=== PATIENT | male | born 1995 | race Caucasian/White ===

== ENCOUNTER 2024-05-12 14:35 | Inpatient (IN) | payer OTHER, SELFPAY ==
[2024-05-12] VITALS (9 sets, daily range): BP systolic 103–133; BP diastolic 57–84; BMI 22.9
--- NOTE | 2024-05-12 11:32 | ED.GENMED ---
History of Present Illness
General
Chief Complaint: Alcohol Problem
Source: patient
Time Seen by Provider: 05/12/24 11:26
History of Present Illness
History of Present Illness:
28yoM with a history of alcohol abuse presenting via EMS for evaluation of alcohol withdrawal. Patient has been drinking alcohol heavily consistently for the past 9 years. He states he drinks at least 6 shots of liquor and 5-6 beers per day and
sometimes drinks up to 12 shots a day. He stopped drinking and last drink was around 7:30pm last night. He states he feels like . He reports nausea, dry heaving, body pains, tremors. He also noticed a small amount of dark red blood in his
spittle after dry heaving. Patient was given 4 mg IV Zofran prehospital. He has never gone through alcohol withdrawal in the past. He smokes marijuana. Otherwise denies illicit drug use.
Past History
Past History
ED Past Medical History: None
ED Past Surgical History: None
Patient has exhibited threatening behavior?: No
Social History
Tobacco: Non-smoker
Alcohol: None
Drug: Marijuana
Personal: Single
Living: with family
Family History
Family History: Other (non contributory)
Phy Exam
Physical Exam
Physical Exam:
Mildly diaphoretic, dry heaving, appears uncomfortable
General Physical Exam
General Presentation: mild distress
General age: appears stated age
General Skin: warm
General Habitus: normal
General Mental: alert
ENT Exam
ENT Exam: normocephalic
Cardiovascular Exam
Cardiovascular Exam: regular rate/rhythm and no murmur
Pulmonary Exam
Pulmonary Exam: lungs clear, no respiratory distress, no rales, no crackles, no rhonchi and no wheezing
Neurological Exam
Neurological Exam: alert and no motor deficits
[place] Coma Scale
Eye Opening: Spontaneous
Verbal Response: Oriented
Motor Response: Obeys Commands
GCS Total Score: 15
Skin Exam
Skin Exam: normal color and warm/dry
Psychiatric Exam
Psychiatric Exam: normal mood/affect
Scores
Withdrawal Assessment of Alcohol
Withdrawal Assessment Completed?: Not applicable
Course
Orders/Labs/Results
Orders:
Orders
05/12/24 11:21
ECG [Electrocardiogram (*1)] Urgent
Reason for Study: Other
Other Reason for Exam: alcohol withdrawl
EKG- Treatment ONCE
05/12/24 11:25
Ondansetron Injectable [Zofran] 4 mg .ROUTE .STK-MED ONE
05/12/24 11:30
CMP [Comprehensive Metabolic Panel] Urgent
Magnesium Urgent
05/12/24 11:31
Cardiac Monitoring- Treatment ONCE
Complete Blood Count/With Diff Urgent
0.9% Sodium Chloride 1000 ml [Nss] 1,000 ml IV BOLUS
Lorazepam [Ativan] 2 mg IV NOW STA
05/12/24 11:34
Famotidine [Pepcid] 20 mg IV NOW STA
Pantoprazole [Protonix IV] 40 mg IV NOW STA
05/12/24 13:14
Magnesium Sulfate 2 Gram/50 ml [Magnesium Sulfate] 2 gram in 50 ml IV NOW
05/12/24 13:52
Admit/Transfer Patient As Directed
Co-Sign Provider:
Level of Care: Inpatient admission
Assign to:: IMU- Intermediate Care
Physician / Group: [email or web address]
Diagnosis: Acute ETOH WDS - Hi risk for fulminant DTs
Reason for Hospitalization: Acute ETOH WDS - Hi risk for fulminant DTs
Expected length of stay greater than two midnights?: Yes
ELOS- Estimated Length of Stay in days: 3
I certify the patient meets the requirements for IP care: Yes
05/12/24 14:04
Code Status As Directed
Resuscitation Status: Full Code
Abnormal Lab Results
05/12/24 05/12/24
11:30 11:31
WBC 18.2 H 10^3/uL
(4.8-10.8)
RBC 4.58 L 10^6/uL
(4.70-6.10)
MCH 31.9 H pg
(27.0-31.0)
Abs Immat Gran (auto) 0.1 H 10^3/uL
(0-0.05)
Absolute Neuts (auto) 16.1 H 10^3/uL
(1.4-6.5)
Absolute Lymphs (auto) 1.1 L 10^3/uL
(1.2-3.4)
Absolute Monos (auto) 0.9 H 10^3/uL
(0.1-0.6)
Neutrophils % 88.2 H %
(42.2-75.2)
Lymphocytes % 6.2 L %
(20.5-51.1)
Carbon Dioxide 19 L mmol/L
(22-30)
Glucose 101 H mg/dl
(70-99)
Magnesium 1.4 L mg/dl
(1.6-2.3)
AST 72 H U/L
(17-59)
Albumin 5.4 H g/dl
(3.5-5.0)
05/12/24 11:31
05/12/24 11:30
Vital Signs
Initial and Last Documented VS:
Initial Vital Signs
Temp Pulse Resp BP Pulse Ox
97.8 F 70 18 133/65 99
05/12/24 11:22 05/12/24 11:22 05/12/24 11:22 05/12/24 11:22 05/12/24 11:22
Last Documented Vital Signs
Temp Pulse Resp BP Pulse Ox
97.8 F 114 23 114/72 97
05/12/24 11:22 05/12/24 14:00 05/12/24 14:00 05/12/24 14:00 05/12/24 14:00
MDM/Problems Addressed
Differential Diagnosis Includes:
28yoM here for alcohol withdrawal. Hx of heavy alcohol use, last drink 7:30pm. Interested in quitting. C/o nausea, dry heaving, fatigue, feeling like . He is mildly diaphoretic and uncomfortable on exam. VSS. Differential diagnosis includes but
is not limited to: alcohol withdrawal, dehydration, electrolyte abnormality
Initial ED plan: Check CBC, CMP, magnesium, and EKG. 2mg IV Ativan and fluid bolus ordered. Anticipate that patient will need to be admitted given high risk of DTs.
*EKG
Interpreted by ED Provider?: Yes
EKG Intrepretation Date: 05/12/24
Heart Rate: 65
Rate: normal
Rhythm: sinus and PAC's
Ulysses: normal axis
Interval: normal interval
QRS Pattern: normal QRS
Ischemia: no ischemia
*Critical Care Note
Total Time (30-74mins, 75-104mins- exclusive of procedures): Not Applicable
ED Attending Note
-
Portions of this chart may have been created with voice recognition software.� Occasional wrong word or��sound alike� substitutions may have occurred due to the inherent limitations of voice recognition software.
Discharge Plan
Departure
Patient Disposition: Admit
Date of Disposition: 05/12/24
Time of Disposition: 13:22
Presentation/result/management discussed w/ accepting MD/DO: Hospitalist
Discharge Problem:
Alcohol withdrawal
Interventions
Interventions:
*General Assessment Last Done: 05/12/24 11:22
ED- Fall Risk Assessment Last Done: 05/12/24 12:07
[2024-05-12] MEDS: NSS 1000 IV ×2 (11:41→19:59)
[2024-05-12] MEDS: PROTONIX IV 40 MG IV (11:41)
[2024-05-12] MEDS: ATIVAN 2 MG IV (11:41)
[2024-05-12] MEDS: PEPCID 20 MG IV (11:41)
[2024-05-12 11:45] LABS: % Basophils 0.4 % (0-2); % Immature Granulocytes 0.4 % (0-0.5); % Lymphocytes 6.2 % (20.5-51.1); % Monocytes 4.8 % (1.7-9.3); % Neutrophils 88.2 % (42.2-75.2); Absolute Basophils 0.1 10^3/uL (0-0.2); Absolute Immature Granulocytes 0.1 10^3/uL (0-0.05); Absolute Lymphocytes 1.1 10^3/uL (1.2-3.4); Absolute Monocytes 0.9 10^3/uL (0.1-0.6); Absolute Neutrophils 16.1 10^3/uL (1.4-6.5); Hematocrit 40.7 % (39.0-52.0); Hemoglobin 14.6 g/dL (13.0-18.0); Mean Corp Hgb Conc. 35.9 g/dL (33.0-37.0); Mean Corpuscular Hgb 31.9 pg (27.0-31.0); Mean Corpuscular Volume 88.9 fL (80.0-94.0); Mean Platelet Volume 9.1 fL (7.4-10.4); Nucleated Red Blood Cells % 0 % (-); Platelet Count 290 10^3/uL (130-400); Red Blood Cell Count 4.58 10^6/uL (4.70-6.10); Red Cell Dist. Width 13.1 % (11.5-14.5); White Blood Cell Count 18.2 10^3/uL (4.8-10.8)
[2024-05-12 12:07] LABS: ALT (SGPT) 45 U/L (0-50); AST (SGOT) 72 U/L (17-59); Albumin 5.4 g/dl (3.5-5.0); Alkaline Phosphatase 86 U/L (38-126); Blood Urea Nitrogen 17 mg/dl (9-20); Calcium 10.2 mg/dl (8.4-10.2); Carbon Dioxide 19 mmol/L (22-30); Chloride 101 mmol/L (98-107); Glucose 101 mg/dl (70-99); Magnesium 1.4 mg/dl (1.6-2.3); Potassium 3.7 mmol/L (3.5-5.1); Sodium 139 mmol/L (135-145); Total Bilirubin 0.8 mg/dl (0.2-1.3); eGFR > 60.00
[2024-05-12] MEDS: MAGNESIUM SULFATE 50 IV (13:24)
--- NOTE | 2024-05-12 13:46 | HPS.HSE ---
Family Physician
-
Family Physician: Lia Douglass
Chief Complaint
-
concern with ETOH WDS
History of Present Illness
HPI
28M HX alcohol used disorder seen at ER for evaluation of alcohol withdrawal.
- has been drinking alcohol heavily consistently for the past 9 years.
- at least 6 shots of liquor and 5-6 beers per day and sometimes drinks up to 12 shots a day.
- stopped drinking and last drink was around 7:30pm last night less than 24 hrs ago on presentation
- Anxious , states he feels like .
- reports nausea, dry heaving, body pains, tremors.
- Dark red blood in his spittle after dry heaving.
Patient was given 4 mg IV Zofran prehospital.
Reports ever gone through alcohol withdrawal in the past.
smokes marijuana.
denies illicit drug use.
Medical History
Past Medical History
Past Medical History: Reports Other (ETOH use disorder )
Past Surgical History: Reports None
Social History
Tobacco: Non-smoker
Alcohol: Chronic Alcoholic (- has been drinking alcohol heavily consistently for the past 9 years. - at least 6 shots of liquor and 5-6 beers per day and sometimes drinks up to 12 shots a day. )
Drug: Marijuana
Family History
Family History: Not pertinent
Allergies / Home Medications
Allergies reflects when Allergies were last updated in [facility].
Home Medications with original date entered in [facility]
Allergy/Medication List:
Allergies
Allergy/AdvReac Type Severity Reaction Status Date / Time
No Known Allergies Allergy Verified 05/12/24 11:22
Home Medications
No Meds [No Current Medications] 05/12/24
Review of Systems
-
Constitutional: Reports See HPI
EENT: Reports No Symptoms
Respiratory: Reports No Symptoms
Cardiac: Reports No Symptoms
Abdomen/GI: Reports No Symptoms
: Reports No Symptoms
Musculoskeletal: Reports No Symptoms
Skin: Reports No Symptoms
Neurological: Reports No Symptoms
Endocrine: Reports No Symptoms
Hematologic/Lymphatic: Reports No Symptoms
Psych: Reports Anxiety
Physical Exam
Vital Signs
Vital Signs
Temp Pulse Resp BP Pulse Ox
97.8 F 97 24 114/71 99
05/12/24 11:22 05/12/24 13:00 05/12/24 13:00 05/12/24 13:00 05/12/24 13:00
Physical Exam
General: Well Developed, Well Nourished and No Apparent Distress
HEENT: NormoCephalic, Moist mucous membranes and Atraumatic
Respiratory: Clear
Cardiac: S1/S2 and Regular Rhythm; No Murmur or Rub
GI: Soft, Non Tender, Non Distended and Normal Bowel Sounds; No Organomegaly
Rectal: Deferred by Provider
Musculoskeletal: No Clubbing, No Cyanosis and No Edema
Skin: No Rash
Neuro: Nonfocal/grossly intact
Laboratory Results
-
05/12/24 11:31
05/12/24 11:30
Laboratory Results
Total Bilirubin 0.8 mg/dl (0.2-1.3) 05/12/24 11:30
AST 72 U/L (17-59) H 05/12/24 11:30
ALT 45 U/L (0-50) 05/12/24 11:30
Alkaline Phosphatase 86 U/L (38-126) 05/12/24 11:30
Data Reviewed
-
Lab Data: Labs Reviewed by me
Impression/Plan
-
Reviewed VS:
Vital Signs
Temp Pulse Resp BP Pulse Ox
97.8 F 97 24 114/71 99
05/12/24 11:22 05/12/24 13:00 05/12/24 13:00 05/12/24 13:00 05/12/24 13:00
Laboratory Tests
05/12/24 05/12/24
11:30 11:31
WBC 18.2 H
Hgb 14.6
MCV 88.9
Plt Count 290
Carbon Dioxide 19 L
eGFR > 60.00
Magnesium 1.4 L
Total Bilirubin 0.8
AST 72 H
ALT 45
Alkaline Phosphatase 86
Albumin 5.4 H
EKG report
SINUS RHYTHM WITH PREMATURE ATRIAL COMPLEXES
OTHERWISE NORMAL ECG
WHEN COMPARED WITH ECG OF 31-MAY-2014 21:31,
PREMATURE ATRIAL COMPLEXES ARE NOW PRESENT
VENT. RATE HAS DECREASED BY 33 BPM
NONSPECIFIC T WAVE ABNORMALITY NO LONGER EVIDENT IN INFERIOR LEADS
NONSPECIFIC T WAVE ABNORMALITY NO LONGER EVIDENT IN ANTEROLATERAL LEADS
Confirmed by BULMARO COATES, CHANELL ([id number]) on 05/12/2024 1:20:34 PM
NO PRIOR hospitalist admission:
ASSESSMENT & PLAN
Acute ETOH WDS - Hi risk for fulminant DTs
- last drink was around 7:30pm last night lesss than 24 hrs ago on presentation
- calm down with IV Ativan 2 mg at ER
- will start PHB protocol
- Psych consulted
Hypomagnesemia of Alcoholism
- S/P IV Mg
- f/u Mg
DVT Px: SCD
Code: full
IMU
--- NOTE | 2024-05-12 16:35 | CON.MD ---
Consultation - Medical
-
28 yr old M, presenting to ED after seeing blood in vomit today at work. Psychiatry consulted as pt with significant EtOH abuse & at risk of w/d.
Pt reports drinking 'at least' 6 beers & 6 shots every day since his early 20's, with no significant periods of sobriety (at most few weeks 'here and there'). Pt notes that he often will have more EtOH than his minimum, up to 12 shots and 6 beers in
1 day. Denies hx of w/d seizures, denies hx of AM tremulousness though does feel nauseous/throws up and has 'few shots' to feel better & start the day.
Lives with his sister and her bf, has good relationship with them - it seems they drink EtOH as well and last week had a 'sit down' and all agreed they need to drink less EtOH. Pt not interested in any EtOH tx at this time however & does not want to
get sober - wants to just decrease his use to '2 or 3 beers' a day. Attempted to provide psychoed about risks of ongoing use and importance of abstinence, especially given what brought him to ED, however pt not amenable to this at this time.
Did receive IV Ativan 2mg in ED for w/d.
Mg being repleted due to hypomagnesemia of alcoholism.
AST 72, LFTs otherwise wnl
elevated WBC, no anemia
EtOH abuse, severe
MSE: calm,cooperative,pleasant,speech is normal rate & rhythm,,mood is OK, affect is appropriate & congruent to mood,, thought process is logical & goal directed, thought content: denies SI/HI/AVH/delusions. AAOx3. Memory not formally tested.
Insight moderate. Judgement moderate
Plan:
Continue MSAS protocol, likely needs phenobarbital given extent of his use though this seems to already be in his plan on admission
No other changes indicated at this time
[2024-05-12 19:06] LABS: INR 1.06; PT 14.1 Sec (11.4-14.6)
[2024-05-12 19:07] LABS: APTT 25.9 Sec (23.4-35.0)
[2024-05-12 19:17] LABS: GGTP 232 U/L (15-73); Magnesium 2.1 mg/dl (1.6-2.3); Phosphorus 3.8 mg/dl (2.5-4.5)
[2024-05-12 19:19] LABS: Alcohol None Detected
[2024-05-12 19:23] LABS: B-Hydroxybutyrate 3.28 mmol/L (0.02-0.27)
[2024-05-12] MEDS: NICODERM TRANSDERMAL 14 MG TRANSDERM (19:58)
[2024-05-12] MEDS: THIAMINE INJECTION 200 MG IV ×2 (19:59→23:44)
[2024-05-12] MEDS: PHENOBARBITAL 104 MG IV (20:55)
[2024-05-13] VITALS (10 sets, daily range): BP systolic 105–135; BP diastolic 62–90; BMI 23.2
[2024-05-13] MEDS: TYLENOL 650 MG PO (04:03)
[2024-05-13 04:09] LABS: Urine Albumin Trace (Neg - Trace); Urine Bilirubin 1+ (Negative); Urine Character Clear (Clear); Urine Color Amber; Urine Glucose Negative (Negative); Urine Ketone 3+ (Negative); Urine Leukocyte Negative (Negative); Urine Nitrite Negative (Negative); Urine Occult Blood Negative (Negative); Urine Urobilinogen 1+ (Neg - 1+)
[2024-05-13 04:50] LABS: Amphetamines Negative (Negative); Barbiturates Positive (Negative); Benzodiazepines Positive (Negative)
[2024-05-13 04:50] LABS: ALT (SGPT) 33 U/L (0-50); AST (SGOT) 52 U/L (17-59); Alkaline Phosphatase 48 U/L (38-126); Blood Urea Nitrogen 14 mg/dl (9-20); Calcium 8.7 mg/dl (8.4-10.2); Carbon Dioxide 22 mmol/L (22-30); Chloride 100 mmol/L (98-107); Estimated Creatinine Clearance > 125 ml/min; Glucose 83 mg/dl (70-99); Potassium 3.9 mmol/L (3.5-5.1); Sodium 130 mmol/L (135-145); Total Bilirubin 1.3 mg/dl (0.2-1.3); Total Protein 6.3 g/dl (6.3-8.2); eGFR > 60.00
[2024-05-13 04:51] LABS: Buprenorphine Negative (Negative); Cocaine Negative (Negative); Marijuana Positive (Negative); Methadone Negative (Negative); Methamphetamines Negative (Negative); Opiates Negative (Negative); Phencyclidine Negative (Negative); Tricyclic Antidepressants Negative (Negative)
[2024-05-13 05:05] LABS: Fentanyl, Urine Negative (Negative)
[2024-05-13] MEDS: NSS 1000 IV (07:36)
[2024-05-13] MEDS: NICODERM TRANSDERMAL 14 MG TRANSDERM (07:37)
[2024-05-13] MEDS: THIAMINE INJECTION 200 MG IV ×3 (07:38→23:02)
[2024-05-13] MEDS: PHENOBARBITAL 97.5 MG IV ×3 (07:38→21:04)
[2024-05-13] MEDS: FOLVITE 1 MG PO (07:38)
--- NOTE | 2024-05-13 13:42 | W.PN.HOSP.TC ---
Addendum entered and electronically signed by Duong Jordan MD 05/13/24 14:08:
Heme test was found to be negative.
Original Note:
Today's Communication/Plan
-
replete lyte
phenobarb protocol
MSAS protocol
IV ppi
Assessment / Plan
Assessment / Plan
#Daily alcohol abuse
#Acute alcohol withdrawal
#Acute alcohol withdrawal syndrome with concern for developing possibly delirium tremens
Starting to feel little bit better
Continue with IV fluids and can be stopped later today
Encourage p.o. intake
Continue with alcohol withdrawal protocol. Continue with Ativan per the protocol
Continue with phenobarbital taper regimen
Appreciate psych assistance.
#Hypomagnesemia
Replete and monitor
#Nausea and vomiting with possible Kelsey-Hernadnez tear versus esophagitis versus gastritis
IV PPI
Check FOBT
Hemoglobin stable. Monitor for any luminal bleeding. Check CBC. Trend h/h
#Mild hyponatremia secondary to hypovolemia
Trend BMP
Monitor p.o. intake
Marijuana usage daily
Tobacco abuse daily
Nicotine patch
DVT prophylaxis with Lovenox
Anticipated Discharge: > 48 hours
Subjective/Interval History
-
Date of Service: May 13, 2024
states starting to feel little bit better
states vomiting specks of blood yesterday
having mildly loose bm
Objective Data
-
Labs:
Laboratory Results
05/13/24
03:59
Sodium 130 L D
Potassium 3.9
Chloride 100
Carbon Dioxide 22
BUN 14
Creatinine 0.7
Glucose 83
Calcium 8.7 D
Total Bilirubin 1.3
AST 52
ALT 33
Alkaline Phosphatase 48
Vital Signs:
Vital Signs
Temp Pulse Resp BP Pulse Ox
98.1 F 62 22 132/83 97
05/13/24 11:10 05/13/24 08:00 05/13/24 08:00 05/13/24 08:00 05/13/24 04:00
I&O
05/12/24 05/13/24 05/14/24
06:59 06:59 06:59
Output Total 175 / 175
Balance -175 / -175
Physical Exam
-
General: Well Developed and No Apparent Distress
HEENT: Normocephalic, Atraumatic and Moist Mucous Membranes
Respiratory: Clear to Auscultation
Cardiac: Regular Rhythm and S1/S2; Negative Murmur, Rub or Gallop
GI: Soft, Nontender, Nondistended and Normal Bowel Sounds; Negative Organomegaly
Rectal: Deferred by Provider
Musculoskeletal: No Clubbing, No Cyanosis and No Edema
Skin: Negative Rash
Neuro: Awake, Alert, Oriented, AO x 3, No Motor Deficits, Tremors and Nonfocal/Grossly Intact
Psych: Calm
Data Reviewed
-
Total Time Spent with Patient (in minutes): 55
[2024-05-13 14:19] LABS: Magnesium 1.9 mg/dl (1.6-2.3); Phosphorus 2.9 mg/dl (2.5-4.5)
[2024-05-13 14:31] LABS: % Basophils 0.5 % (0-2); % Eosinophils 0.6 % (0-6); % Immature Granulocytes 0.4 % (0-0.5); % Lymphocytes 18.6 % (20.5-51.1); % Monocytes 7.7 % (1.7-9.3); % Neutrophils 72.2 % (42.2-75.2); Absolute Basophils 0.1 10^3/uL (0-0.2); Absolute Eosinophils 0.1 10^3/uL (0-0.7); Absolute Monocytes 0.8 10^3/uL (0.1-0.6); Absolute Neutrophils 7.8 10^3/uL (1.4-6.5); Hematocrit 35.7 % (39.0-52.0); Hemoglobin 12.6 g/dL (13.0-18.0); Mean Corp Hgb Conc. 35.3 g/dL (33.0-37.0); Mean Corpuscular Hgb 32.1 pg (27.0-31.0); Mean Corpuscular Volume 91.1 fL (80.0-94.0); Mean Platelet Volume 9.2 fL (7.4-10.4); Nucleated Red Blood Cells % 0 % (-); Platelet Count 203 10^3/uL (130-400); Red Blood Cell Count 3.92 10^6/uL (4.70-6.10); Red Cell Dist. Width 12.9 % (11.5-14.5); White Blood Cell Count 10.8 10^3/uL (4.8-10.8)
--- NOTE | 2024-05-13 15:08 | CM ---
Patient with Hx Etoh abuse. Tox screen + barbs, benzos, THC. MSAS per nursing. Psych Consult noted.
Spoke with patient who resides with his sister Jessi, her boyfriend and his cat, in a 2nd floor apartment with 1 flight inside stairs.
The patient has been independent in ADLs and ambulation.
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
The patient has no DME or prior VN.
PCP - Lia Douglass
Pharmacy - [facility]
The patient confirms that he has no insurance.
CM Consult: Substance Abuse
The patient says he attended [facility] outpatient program 9 yrs ago that was court mandated after a DUI, however he did not take the program seriously and drank alcohol during the program.
He is willing to speak with [facility] however doubts he will do an inpatient program as there is no one else who can manage his cat.
Referral to [facility]; the patient will be seen tomorrow.
Plan follow up with [facility].
--- NOTE | 2024-05-13 15:29 | PTCARENOTE ---
Pt's MSAS 0 today. No tremors, AAO x3. vital signs stable.
[2024-05-13] MEDS: PROTONIX IV 40 MG IV ×2 (15:58→21:03)
[2024-05-13] MEDS: NSS (PRESERVATIVE FREE) 10 ML IV ×2 (15:59→21:02)
--- NOTE | 2024-05-13 16:55 | PTCARENOTE ---
Notified Dr. Campos, cross cover and Dr. Katz, Cards pt's BP 75/52. Order to hold 2mg bumex.
[2024-05-13] MEDS: LOVENOX 40 MG SC (18:40)
--- NOTE | 2024-05-13 23:30 | PTCARENOTE ---
Received pt from day shift RN. Pt aaox3 and able to make needs known. AIDE meds given and nursing assessment completed. Pt resting in bed with call castillo in reach.
[2024-05-14] VITALS: BP 105/71
[2024-05-14 04:27] VITALS: BP 133/92
--- NOTE | 2024-05-14 04:40 | PTCARENOTE ---
Received pt from day shift RN. Pt aaox3 and able to make needs known. MSAS zero. VSS. AIDE meds given and nursing assessment completed. Pt resting in bed with call castillo in reach.
[2024-05-14 04:53] LABS: % Basophils 0.5 % (0-2); % Eosinophils 0.9 % (0-6); % Immature Granulocytes 0.3 % (0-0.5); % Lymphocytes 32.5 % (20.5-51.1); % Monocytes 8.8 % (1.7-9.3); Absolute Eosinophils 0.1 10^3/uL (0-0.7); Absolute Lymphocytes 2.4 10^3/uL (1.2-3.4); Absolute Monocytes 0.7 10^3/uL (0.1-0.6); Absolute Neutrophils 4.3 10^3/uL (1.4-6.5); Hemoglobin 13.1 g/dL (13.0-18.0); Mean Corp Hgb Conc. 35.4 g/dL (33.0-37.0); Mean Corpuscular Volume 90.2 fL (80.0-94.0); Mean Platelet Volume 9.4 fL (7.4-10.4); Nucleated Red Blood Cells % 0 % (-); Platelet Count 207 10^3/uL (130-400); Red Cell Dist. Width 12.9 % (11.5-14.5); White Blood Cell Count 7.5 10^3/uL (4.8-10.8)
[2024-05-14 05:21] LABS: Magnesium 1.9 mg/dl (1.6-2.3)
[2024-05-14] MEDS: THIAMINE INJECTION 200 MG IV (07:49)
[2024-05-14] MEDS: NICODERM TRANSDERMAL 14 MG TRANSDERM (07:49)
[2024-05-14] MEDS: FOLVITE 1 MG PO (07:49)
[2024-05-14] MEDS: PHENOBARBITAL 97.5 MG IV (07:49)
[2024-05-14] MEDS: PROTONIX IV 40 MG IV (07:50)
[2024-05-14] MEDS: NSS (PRESERVATIVE FREE) 10 ML IV (07:50)
--- NOTE | 2024-05-14 07:57 | W.PN.HOSP.TC ---
Today's Communication/Plan
-
BMP
Possible discharge
Assessment / Plan
Assessment / Plan
Gen-AAOx3, NAD
HEENT-NC, AT, anicteric, clear oral mm
Neck-supple
CV-reg, no M, +S1/S2
Lungs-clear B/L
Abd-soft, NT, ND
Ext-no edema
Musculoskeletal-no cyanosis, clubbing
Skin-warm and dry
Neuro-grossly non-focal
Psych-calm, cooperative
Severe alcohol use disorder -abstinence encouraged, patient motivated to quit. Continue thiamine, folic acid.
Acute alcohol withdrawal syndrome -improving. Continue phenobarbital taper. Last dose of lorazepam was 05/12.
Hypomagnesemia
Replete and monitor
Nausea and vomiting with possible Kelsey-Hernandez tear versus esophagitis versus gastritis
IV PPI. Stool heme-negative. Hemoglobin stable.
Hyponatremia -suspect due to polydipsia as he admits to drinking a lot of water. Repeat sodium pending for today.
Marijuana usage daily
Tobacco dependence -Nicotine patch
DVT prophylaxis with Lovenox
Dispo -patient requesting discharge today, wants to take care of his depressed cat. Await [facility] to monitor sodium level prior to discharge. If stable, discharge on phenobarbital taper and follow-up as outpatient. He is not interested in attending
outpatient or inpatient alcohol rehab. He believes he can quit on his own and has social support.
35 minutes spent in discharge process.
Anticipated Discharge: Today
Subjective/Interval History
-
Date of Service: May 14, 2024
Patient seen and examined. Asking to be discharged. No complaints.
Objective Data
-
Labs:
Laboratory Results
05/14/24 05/14/24
04:11 07:49
WBC 7.5
Hgb 13.1
Hct 37.0 L
Plt Count 207
Sodium Pending
Potassium Pending
Chloride Pending
Carbon Dioxide Pending
BUN Pending
Creatinine Pending
Glucose Pending
Calcium Pending
Vital Signs:
Vital Signs
Temp Pulse Resp BP Pulse Ox
98.5 F 56 13 133/92 98
05/14/24 07:22 05/14/24 04:27 05/14/24 04:27 05/14/24 04:27 05/14/24 04:33
I&O
05/13/24 05/14/24 05/15/24
06:59 06:59 06:59
Output Total 175 / 175
Balance -175 / -175
Review of Systems
-
History Source: Patient
All other systems: Reviewed and negative
[2024-05-14 08:00] VITALS: BP 155/92
[2024-05-14 09:03] LABS: Blood Urea Nitrogen 5 mg/dl (9-20); Calcium 9.4 mg/dl (8.4-10.2); Carbon Dioxide 27 mmol/L (22-30); Chloride 98 mmol/L (98-107); Estimated Creatinine Clearance > 125 ml/min; Glucose 99 mg/dl (70-99); Potassium 3.5 mmol/L (3.5-5.1); Sodium 131 mmol/L (135-145); eGFR > 60.00
--- NOTE | 2024-05-14 09:09 | W.DS.TRANS ---
DC Summary - Human Resources Clerk
-
Discharge Instructions:
Discharge Diagnosis/Procedures Alcohol withdrawal syndrome, hyponatremia
Diet Regular
Activity As tolerated
Driving Restrictions No driving while you are on phenobarbital
Bathing Restrictions None
Instructions:
Stand-Alone Forms:
Changes to Home Medications: No
Discharge Medications:
DC Medications w/original date entered in [employer]
folic acid 1 mg tablet 1 mg PO DAILY #30 tabs 05/14/24
phenobarbital 32.4 mg tablet 32.4 mg PO TID #24 tabs 05/14/24
thiamine HCl (vitamin B1) 100 mg tablet 100 mg PO BID #60 tabs 05/14/24
Home Medication Changes
Pending Results: No
--- NOTE | 2024-05-14 09:26 | CM ---
Spoke with patient as there is a discharge order. Patient denied seeing [facility] but stated that he is feeling better and has a lot of supportive people in his life and therefore does not feel that he will need f/u outpatient or inpatient resources.
Resources were offered by CM however he confirmed he has a good plan in place and his boss at his job is a wonderful support for him. His sister's boyfriend is going to drive patient home today.
Plan: Case management will continue to follow and assist with discharge planning. Patient wants to return home and maintain sobriety with the support his friends and family.
[2024-05-14] MEDS: KCL 40 MEQ PO (09:53)
--- NOTE | 2024-05-14 10:30 | PTCARENOTE ---
Patient AOx3. Patient can be anxious at times. MSAS completed per protocol. Patient on RA with SpO2 greater than 92%. VSS. Sinus wayne-NSR on monitor. Independent when ambulating. Call castillo within reach, bed in lowest position, and bed of wheels
locked.
== END 2024-05-14 10:33 | disposition home or self-care (01) | DRG 897 ==
LOC: IMU 14:35
PROVIDERS: Hospitalist; ADMITTING PHYSICIAN Internal Medicine; ATTENDING PHYSICIAN Hospitalist; CONSULT PHYSICIAN Psychiatry & Neurology Psychiatry; EMERGENCY PHYSICIAN Emergency Medicine; FAMILY PHYSICIAN Family Medicine
DX: F10.239 Alcohol dependence with withdrawal, unspecified (principal); E87.1 Hypo-osmolality and hyponatremia; E83.42 Hypomagnesemia
CPT/HCPCS: 80048; 80053; 80306; 80307; 81003; 82010; 82077; 82977; 83735; 84100; 85025; 85610; 85730; 93005; 96361; 96365; 96375; 99285; 99406